=== PATIENT | male | born 1990 | race Caucasian/White ===

== ENCOUNTER 2016-09-12 18:34 | Inpatient (IN) ==
--- NOTE | 2016-09-12 19:01 | Emergency Department Note ---
Disposition Clinical Impression: Suicidal ideation, Cannabis abuse, Chronic schizophrenia Bipolar disorder Qualifiers: Active/Remission status: currently active Current bipolar episode type: mixed Current episode severity: unspecified Qualified Code(s): F31.60 - Bipolar disorder, current episode mixed, unspecified Disposition: Admitted As Inpatient Condition: Fair Time of Disposition: 21:04 Psych HPI - General Chief Complaint: ED Psychiatric Symptoms Stated Complaint: SI attempt Time Seen by Provider: 09/12/16 18:35 Source: patient Mode of arrival: ambulatory Limitations: no limitations Nursing Notes Reviewed: Yes Vital Signs Reviewed: Yes - History of Present Illness HPI Narrative: 26-year-old male with history of bipolar, schizophrenia, presents after an attempt of self-harm, tried CUTTING HIS his left wrist, he did cut his left wrist with razor blades, there is a superficial incisions to the distal aspect of his left wrist, bleeding controlled. Denies homicidal ideation, denies auditory or visual hallucinations. He is currently taking several psychiatric medications including fluphenazine, citalopram, he is not up-to-date on his tetanus shot. Pt complaint: suicidal ideation, feels depressed History of similar episodes: Yes Improves with: medication Worsens with: none Context: recent drug abuse, not taking psychiatric medications, significant life stressor Alleged intoxication: No Associated Psychiatric Symptoms: none Associated symptoms: Reports: denies other symptoms. Denies: confusion, headache, shortness of breath, nausea Traumatic symptoms: denies traumatic injury Treatments prior to arrival: none Self harm or harm to others: admits thoughts of self harm, has plan (Cutting) - Related Data Home Medications Medication Instructions Recorded Confirmed Citalopram [CeleXA] 40 mg PO DAILY 09/12/16 09/12/16 Previous Rx's Medication Instructions Recorded Fluphenazine [Prolixin] 10 mg PO HS #30 tablet 07/07/16 HydrOXYzine Pamoate 25 mg PO TID PRN #90 capsule 07/07/16 Trazodone HCl 100 mg PO HS #30 tablet 07/07/16 Allergies Allergy/AdvReac Type Severity Reaction Status Date / Time No Known Allergies Allergy Verified 07/21/16 22:01 Review of Systems: A 14 point ROS was obtained and was negative except as per below or as documented in the HPI. Constitutional: Denies: fever, chills, weakness, weight change Eyes: Denies: eye pain, eye discharge, vision change ENT: Denies: ear pain, throat pain, hearing loss, epistaxis, congestion, Cardiovascular: Denies: chest pain, palpitations, dyspnea on exertion, edema, syncope Respiratory: Denies: cough, dyspnea, wheezes, hemoptysis, stridor Gastrointestinal: Denies: abdominal pain, nausea, vomiting. diarrhea, constipation, hematemesis, hematochezia Genitourinary: Denies: urgency, dysuria, frequency, hematuria Musculoskeletal: Denies: back pain, neck pain, arthralgia, myalgia Integumentary: Left wrist laceration Denies: rash, abrasion, lesions Neurological: Denies: headache, weakness, numbness, paresthesias, confusion, abnormal gait Psychiatric: Reports suicidal ideation, suicidal plan reports anxiety and depression Denies: HI Endocrine: Denies: fatigue Hematological/Lymphatic: Denies: easy bleeding, easy bruising Allergic/Immunologic: Denies: facial swelling, urticaria All systems ED: reviewed and negative except as stated. Past Medical History - Past Medical History Attestation: Yes The following information was validated with the patient. Medical history: Reports: arthritis, COPD, hypertension, other Psychiatric history: Reports: anxiety, bipolar, depression, PTSD, prior suicide attempt, previous psychiatric hospitalization - Social History Smoking Status: Current every day smoker Smokeless Tobacco Status: Yes Alcohol use: Reports: occasionally Drug use: Reports: opiates, marijuana, IVDU Physical Exam General: alert and oriented, in NAD, appears stated age, is pleasant and cooperative to exam Head: NCAT, no lesions Eyes: sclera anicteric, conjunctiva normal, PERRLA bilaterally, EOMI Bilaterally Ears: normal inspection, external ear wnl Nose: nasal septum nondeviated, sinuses nontender Throat: good dentition, mucous membranes moist Neck: no lymphadenopathy, trachea midline no deviation, no JVD Resp: CTA bilaterally, no resp distress, symmetric chest rise, no wheezes, rales , or rhonchi bilaterally CV: RRR, normal S1 and S2, no m/g/r, Pulses +2 Rad, +2 DP/PT Abdomen: Soft, NTND, no hepatosplenomegaly, no hernias, Negative Rovsing's sign , Negative Phillips's sign Back: normal inspection, no tenderness to palpation, Negative CVA tenderness bilaterally Neuro: A&O3, CN II-XII grossly intact bilaterally, no motor or sensory deficits bilaterally, gait normal, GCS 15 [id number] Ext: normal inspection, symmetric Active and Passive ROM UE and LE bilaterally , no pedal edema bilaterally Psych: +Suicidal Ideation Skin: Left wrist with several linear abrasions, no deep lacerations, - General Limitations: no limitations General appearance: alert, in no apparent distress Course Course Narrative: 26yom with suicidal ideation, update tetanus, clean and dress wound, psych workup pain medication and nicoderm patch. - Reevaluation(s) Reevaluation #1: Patient with violent outbursts, threatening staff, yelling loudly, he was pink slipped at this time workup negative and 1A called. Vital Signs Temperature 99.1 F 09/12/16 18:38 Pulse Rate 86 09/12/16 18:38 Respiratory Rate 18 09/12/16 18:38 Blood Pressure 112/67 09/12/16 18:38 O2 Sat by Pulse Oximetry 95 09/12/16 18:38 Temperature 98.9 F 09/12/16 21:26 Pulse Rate 86 09/12/16 18:38 Respiratory Rate 18 09/12/16 21:26 Blood Pressure 114/68 09/12/16 21:26 O2 Sat by Pulse Oximetry 95 09/12/16 18:38 Oxygen Delivery Oxygen Delivery Room Air Psych - Lab Data Result diagrams: 09/12/16 19:18 09/12/16 19:18 Lab Results 09/12/16 09/12/16 09/12/16 Range/Units 19:05 19:05 19:18 WBC 7.9 (4.3-11.1) K/mcL RBC 4.98 (4.19-5.50) M/mcL Hgb 16.2 (12.9-16.9) g/dL Hct 46.2 (37.5-50.1) % MCV 92.8 (83.0-100.0) fL MCH 32.5 (28.0-33.3) pg MCHC 35.1 (31.6-35.5) g/dL RDW 11.8 (11.5-14.5) % Plt Count 257 (140-400) K/mcL MPV 10.0 (9.4-12.4) fL Immature Gran % 0.4 (0-4) % Seg Neutrophils % 71.7 % Lymphocytes % 19.2 % Monocytes % 7.5 % Eosinophils % 0.6 % Basophils % 0.6 % Neutrophils # 5.7 (1.6-8.9) K/mcL Lymphocytes # 1.5 (0.6-4.6) K/mcL Monocytes # 0.6 (0.0-1.3) K/mcL Eosinophils # 0.1 (0.0-0.6) K/mcL Basophils # 0.1 (0.0-0.2) K/mcL Sodium (136-145) mEq/L Potassium (3.5-4.5) mEq/L Chloride (98-109) mEq/L Carbon Dioxide (19-29) mEq/L BUN (8-26) mg/dL Creatinine (0.72-1.25) mg/dL Est GFR ( Amer) (> 60) Est GFR (Non-Af Amer) (> 60) BUN/Creatinine Ratio (6-26) Glucose (70-99) mg/dL Calculated Osmolality (280-300) Calcium (8.6-10.8) mg/dL Urine Color Dark Yellow (Yellow) Urine Clarity Clear (Clear) Urine pH 5.5 (5.0-8.0) pH Units Ur Specific [place] 1.026 H (1.010-1.025) Urine Protein Negative (Neg-Trace) mg/dL Urine Glucose (UA) 100 H (Normal) mg/dL Urine Ketones Negative (Negative) mg/dL Urine Blood Negative (Negative) Urine Nitrite Negative (Negative) Urine Bilirubin Small H (Negative) Urine Urobilinogen Normal (Normal) mg/dL Ur Leukocyte Esterase Negative (Negative) Salicylates (15-30) mg/dL Urine Opiates Screen Negative (Tmrkji=282) ng/mL Acetaminophen (10-30) mcg/mL Ur Barbiturates Screen Negative (Kqrgus=612) ng/mL Ur Phencyclidine Scrn Negative (Cutoff=25) ng/mL Ur Amphetamines Screen Negative (Qioiph=4622) ng/mL U Benzodiazepines Scrn Negative (Yksxql=529) ng/mL Urine Cocaine Screen Negative (Cutoff= 300) ng/mL U Marijuana (THC) Screen Positive H (Cutoff = 50) ng/mL Ethyl Alcohol (0-10) mg/dL 09/12/16 Range/Units 19:18 WBC (4.3-11.1) K/mcL RBC (4.19-5.50) M/mcL Hgb (12.9-16.9) g/dL Hct (37.5-50.1) % MCV (83.0-100.0) fL MCH (28.0-33.3) pg MCHC (31.6-35.5) g/dL RDW (11.5-14.5) % Plt Count (140-400) K/mcL MPV (9.4-12.4) fL Immature Gran % (0-4) % Seg Neutrophils % % Lymphocytes % % Monocytes % % Eosinophils % % Basophils % % Neutrophils # (1.6-8.9) K/mcL Lymphocytes # (0.6-4.6) K/mcL Monocytes # (0.0-1.3) K/mcL Eosinophils # (0.0-0.6) K/mcL Basophils # (0.0-0.2) K/mcL Sodium 139 (136-145) mEq/L Potassium 3.7 (3.5-4.5) mEq/L Chloride 107 (98-109) mEq/L Carbon Dioxide 21 (19-29) mEq/L BUN 15 (8-26) mg/dL Creatinine 0.76 (0.72-1.25) mg/dL Est GFR ( Amer) > 60 (> 60) Est GFR (Non-Af Amer) > 60 (> 60) BUN/Creatinine Ratio 20 (6-26) Glucose 111 H (70-99) mg/dL Calculated Osmolality 290 (280-300) Calcium 9.5 (8.6-10.8) mg/dL Urine Color (Yellow) Urine Clarity (Clear) Urine pH (5.0-8.0) pH Units Ur Specific [place] (1.010-1.025) Urine Protein (Neg-Trace) mg/dL Urine Glucose (UA) (Normal) mg/dL Urine Ketones (Negative) mg/dL Urine Blood (Negative) Urine Nitrite (Negative) Urine Bilirubin (Negative) Urine Urobilinogen (Normal) mg/dL Ur Leukocyte Esterase (Negative) Salicylates < 5.0 L (15-30) mg/dL Urine Opiates Screen (Tdbcpi=403) ng/mL Acetaminophen < 1.0 L (10-30) mcg/mL Ur Barbiturates Screen (Javdna=804) ng/mL Ur Phencyclidine Scrn (Cutoff=25) ng/mL Ur Amphetamines Screen (Njjjde=1163) ng/mL U Benzodiazepines Scrn (Wpimhb=466) ng/mL Urine Cocaine Screen (Cutoff= 300) ng/mL U Marijuana (THC) Screen (Cutoff = 50) ng/mL Ethyl Alcohol < 10 (0-10) mg/dL Psychiatric Medical Clearance - Medical Clearance Checklist Does the patient have a NEW psychiatric condition?: No Any abnormalities indicating possible medical illness?: No Any history of medical issues?: No Medical History: No Social History Section defined Any abnormal vital signs prior to transfer?: No Current Vitals: Last Vital Signs Temp 98.9 F 09/12/16 21:26 Pulse 86 09/12/16 18:38 Resp 18 09/12/16 21:26 BP 114/68 09/12/16 21:26 Pulse Ox 95 09/12/16 18:38 Is the patient intoxicated or cognitively impaired?: No Psychiatric Lab Panel: Drug Levels and Toxicity 09/12/16 09/12/16 19:05 19:18 Urine Opiates Screen Negative Acetaminophen < 1.0 L Ur Barbiturates Screen Negative Ur Phencyclidine Scrn Negative Ur Amphetamines Screen Negative U Benzodiazepines Scrn Negative Urine Cocaine Screen Negative U Marijuana (THC) Screen Positive H Ethyl Alcohol < 10 Any abnormalities on the physical exam?: No Any abnormal labs?: Yes (THC positive) Abnormal Labs: Abnormal lab results Glucose 111 mg/dL (70-99) H 09/12/16 19:18 Ur Specific [place] 1.026 (1.010-1.025) H 09/12/16 19:05 Urine Glucose (UA) 100 mg/dL (Normal) H 09/12/16 19:05 Urine Bilirubin Small (Negative) H 09/12/16 19:05 Salicylates < 5.0 mg/dL (15-30) L 09/12/16 19:18 Acetaminophen < 1.0 mcg/mL (10-30) L 09/12/16 19:18 U Marijuana (THC) Screen Positive ng/mL (Cutoff = 50) H 09/12/16 19:05 Does the patient require durable medical equiptment?: No Is the patient ambulatory?: Yes Is the patient a fall risk?: No Has the patient been medically cleared?: Yes Attestation Statement - Attestation Attestation: I examined this patient and my medical decision-making was reviewed with the LINE REPAIRER/PA/Advanced Practice Nurse/Resident Physician. I agree with the documented findings, disposition and treatment plan as described except to the extent set forth below. 26-year-old male brought in by parents because of depression, agitation and suicidal thoughts. He has had increasing agitation and attempted to cut himself today with a razor blade. He took a razor blade and inflicted several superficial wounds to his left wrist. Denies any toxic ingestions. He has a history of bipolar and affective disorder with previous suicide attempts. No recent medical complaints. Agitated male in no apparent physiologic distress. He is very agitated and uncooperative initially. Oropharynx is clear mucous membranes moist. Very poor dentition. Neck is supple. Pupils equal and reactive to light. Chest clear to auscultation bilateral. Exam regular. Abdomen soft non-distended, non-tender. Extremities a superficial linear abrasions on his left volar wrist. Brisk radial pulse. Brisk capillary refill. Normal sensation to the entire hand. He is medically cleared and ultimately admitted to psychiatric service.
[2016-09-12 19:18] LABS: Bilirubin,Urine Small (Negative); Blood,Urine Negative (Negative); Clarity,Urine Clear (Clear); Color,Urine Dark Yellow (Yellow); Glucose,Urine (UA) 100 mg/dL (Normal); Ketones,Urine Negative (Negative); Leukocyte Esterase,Urine Negative (Negative); Nitrite,Urine Negative (Negative); PH,Urine 5.5 pH Units (5.0-8.0); Protein,Urine Negative (Neg-Trace); Specific Gravity,Urine 1.026 (1.010-1.025); Urobilinogen,Urine Normal (Normal)
[2016-09-12 19:23] LABS: Amphetamine Screen,Urine Negative ng/mL (Cutoff=1000); Barbiturate Screen,Urine Negative ng/mL (Cutoff=200); Benzodiazepines Screen,Urine Negative ng/mL (Cutoff=200); Cannabinoid Screen,Urine Positive ng/mL (Cutoff = 50); Cocaine Screen,Urine Negative ng/mL (Cutoff= 300); Opiate Screen,Urine Negative ng/mL (Cutoff=300); Phencyclidine Screen,Urine Negative ng/mL (Cutoff=25)
[2016-09-12 19:23] LABS: Basophils # 0.1 K/mcL (0.0-0.2); Basophils % 0.6 %; Eosinophils # 0.1 K/mcL (0.0-0.6); Eosinophils % 0.6 %; Hematocrit 46.2 % (37.5-50.1); Hemoglobin 16.2 g/dL (12.9-16.9); Immature Granulocytes % 0.4 % (0-4); Lymphocytes # 1.5 K/mcL (0.6-4.6); Lymphocytes % 19.2 %; Mean Corpuscular HGB Conc 35.1 g/dL (31.6-35.5); Mean Corpuscular Hemoglobin 32.5 pg (28.0-33.3); Mean Corpuscular Volume 92.8 fL (83.0-100.0); Monocytes # 0.6 K/mcL (0.0-1.3); Monocytes % 7.5 %; Neutrophils # 5.7 K/mcL (1.6-8.9); Platelet Count 257 K/mcL (140-400); Red Blood Count 4.98 M/mcL (4.19-5.50); Red Cell Distribution Width 11.8 % (11.5-14.5); Segmented Neutrophils % 71.7 %
[2016-09-12 19:37] LABS: BUN/Creatinine Ratio 20 (6-26); Blood Urea Nitrogen 15 mg/dL (8-26); Calcium 9.5 mg/dL (8.6-10.8); Carbon Dioxide 21 mEq/L (19-29); Chloride 107 mEq/L (98-109); Glucose 111 mg/dL (70-99); Osmolality,Calculated 290 (280-300); Potassium 3.7 mEq/L (3.5-4.5); Sodium 139 mEq/L (136-145); eGFR For African Americans > 60 (> 60); eGFR For Non-African Americans > 60 (> 60)
[2016-09-12 19:38] LABS: Acetaminophen < 1.0 mcg/mL (10-30); Ethanol < 10 mg/dL (0-10); Salicylate < 5.0 mg/dL (15-30)
[2016-09-12] MEDS: Nicotine 21 MG PATCH.TD24 TD SCH (19:58)
[2016-09-12] MEDS ORDERED: Tdap (Boostrix) Vaccine 0.5 ML SYRINGE IM ONE (20:55)
[2016-09-12] MEDS ORDERED: *HR* LORazepam 1 MG TABLET PO ONE (21:11)
[2016-09-12] MEDS ORDERED: *HR* LORazepam 1 MG TABLET PO PRN (22:49)
[2016-09-12] MEDS ORDERED: *HR* LORazepam 2 MG/ML VIAL IM PRN (22:49)
[2016-09-12] MEDS ORDERED: Haloperidol Lactate 5 MG/ML VIAL IM PRN (22:49)
[2016-09-12] MEDS ORDERED: Acetaminophen 325 MG TABLET PO PRN (22:49)
[2016-09-12] MEDS ORDERED: hydrOXYzine pamoate 25 MG CAPSULE PO PRN (22:49)
[2016-09-12] MEDS ORDERED: MOM Conc 10 ML UD.LIQ PO PRN (22:49)
[2016-09-12] MEDS ORDERED: Mag Hydrox/Al Hydrox/Simeth 30 ML UDC PO PRN (22:49)
[2016-09-12] MEDS: traZODone 50 MG TABLET PO SCH (23:12)
[2016-09-13] MEDS: Nicotine 21 MG PATCH.TD24 TD SCH (08:43)
--- NOTE | 2016-09-13 09:58 | Psychiatry History & Physical ---
Date of Encounter: 09/16/16 Time of Encounter: 09:51 History of Present Illness Patient Stated Chief Complaint: suicidal Medicare Admission Attestation: For traditional Medicare patients the provided hospital inpatient services are reasonable and necessary and in the case of services not specified as inpatient -only under 42 CFR 419.22 (n), that they are appropriately provided as inpatient services in accordance 42 CFR 412.3. For Critical Access Hospital the patient may reasonably be expected to be discharged or transferred to a hospital within 96 hours after admission to the Critical Access Hospital. Admitted From: Emergency Dept History of Present Illness: Mr. Mosley is a 26 year old male admitted from the emergency department where he presented with his parents are concerned that he was noncompliant with his medication is agitated. Sleeping he was feeling depressed and suicidal he cut his left wrist with a razor several cuts that were handled in the ER in the emergency room his tox screen was positive for THC. He has a history of bipolar disorder and schizophrenia also has a substance abuse including marijuana and cocaine he smoked cigarettes and consumes a large amount of caffeine. He also is dealing with legal issues and upcoming court hearing. Past Med Surg Social Fam HX - Past Medical History Medical history: arthritis, COPD, hypertension, other - Past Psychiatric History Psychiatric history: Reports: bipolar, schizophrenia, previous psychiatric hospitalization Family psychiatric history: Unknown Family History of Suicide: Unknown - Social History Smoking Status: Current every day smoker Smokeless Tobacco Status: Yes Alcohol use: occasionally Drug use: opiates, marijuana, IVDU - Family History Father Hx Family Neurologic Disorders: Yes (Bipolar) Medications & Allergies Fluphenazine [Prolixin] 10 mg PO HS #30 tablet 07/07/16 [Rx] HydrOXYzine Pamoate 25 mg PO TID PRN #90 capsule 07/07/16 [Rx] Trazodone HCl 100 mg PO HS #30 tablet 07/07/16 [Rx] Citalopram [CeleXA] 40 mg PO DAILY 09/12/16 [History] Allergies No Known Allergies Allergy (Verified 07/21/16 22:01) Review of Systems Psychiatric: Reports: depression, anxiety, suicidal ideation, auditory hallucinations, hopelessness, irritability Mental Status Exam Patient orientation: Yes Person, Yes Time, Yes Place Level of alertness: Alert Patient appearance: Unkempt, Disheveled Behavior: nervous, anxious, agitated, hostile, restless Psychomotor activity: Agitated Eye contact: Minimal Contact Mood description: Anxious, Labile, Irritable Affect description: labile, dysphoric, anxious Speech pattern: Normal rate, Normal rhythm, Normal tone, Impoverished Speech volume: Normal Thought process: Circumstantial, Disorganized Thought content: Yes Suicidal ideation, Yes Poverty of Content Perceptual disturbances: No Auditory hallucinations, No Visual hallucinations Attention span: Unable to Sustain Attention Memory description: Recent Impaired, Remote Intact Patient reliability: Questionable Historian Intelligence estimate: Average Judgment: Fair Insight: Minimal Results - Vital Signs Vital signs: Temp Pulse Resp BP Pulse Ox 98.2 F 86 16 105/71 95 09/13/16 08:23 09/13/16 08:23 09/13/16 08:23 09/13/16 08:23 09/12/16 18:38 - Labs Labs: Laboratory Last Values WBC 7.9 K/mcL (4.3-11.1) 09/12/16 19:18 RBC 4.98 M/mcL (4.19-5.50) 09/12/16 19:18 Hgb 16.2 g/dL (12.9-16.9) 09/12/16 19:18 Hct 46.2 % (37.5-50.1) 09/12/16 19:18 MCV 92.8 fL (83.0-100.0) 09/12/16 19:18 MCH 32.5 pg (28.0-33.3) 09/12/16 19:18 MCHC 35.1 g/dL (31.6-35.5) 09/12/16 19:18 RDW 11.8 % (11.5-14.5) 09/12/16 19:18 Plt Count 257 K/mcL (140-400) 09/12/16 19:18 MPV 10.0 fL (9.4-12.4) 09/12/16 19:18 Immature Gran % 0.4 % (0-4) 09/12/16 19:18 Seg Neutrophils % 71.7 % 09/12/16 19:18 Lymphocytes % 19.2 % 09/12/16 19:18 Monocytes % 7.5 % 09/12/16 19:18 Eosinophils % 0.6 % 09/12/16 19:18 Basophils % 0.6 % 09/12/16 19:18 Neutrophils # 5.7 K/mcL (1.6-8.9) 09/12/16 19:18 Lymphocytes # 1.5 K/mcL (0.6-4.6) 09/12/16 19:18 Monocytes # 0.6 K/mcL (0.0-1.3) 09/12/16 19:18 Eosinophils # 0.1 K/mcL (0.0-0.6) 09/12/16 19:18 Basophils # 0.1 K/mcL (0.0-0.2) 09/12/16 19:18 Sodium 139 mEq/L (136-145) 09/12/16 19:18 Potassium 3.7 mEq/L (3.5-4.5) 09/12/16 19:18 Chloride 107 mEq/L (98-109) 09/12/16 19:18 Carbon Dioxide 21 mEq/L (19-29) 09/12/16 19:18 BUN 15 mg/dL (8-26) 09/12/16 19:18 Creatinine 0.76 mg/dL (0.72-1.25) 09/12/16 19:18 Est GFR ( Amer) > 60 (> 60) 09/12/16 19:18 Est GFR (Non-Af Amer) > 60 (> 60) 09/12/16 19:18 BUN/Creatinine Ratio 20 (6-26) 09/12/16 19:18 Glucose 111 mg/dL (70-99) H 09/12/16 19:18 Calculated Osmolality 290 (280-300) 09/12/16 19:18 Calcium 9.5 mg/dL (8.6-10.8) 09/12/16 19:18 Urine Color Dark Yellow (Yellow) 09/12/16 19:05 Urine Clarity Clear (Clear) 09/12/16 19:05 Urine pH 5.5 pH Units (5.0-8.0) 09/12/16 19:05 Ur Specific [place] 1.026 (1.010-1.025) H 09/12/16 19:05 Urine Protein Negative mg/dL (Neg-Trace) 09/12/16 19:05 Urine Glucose (UA) 100 mg/dL (Normal) H 09/12/16 19:05 Urine Ketones Negative mg/dL (Negative) 09/12/16 19:05 Urine Blood Negative (Negative) 09/12/16 19:05 Urine Nitrite Negative (Negative) 09/12/16 19:05 Urine Bilirubin Small (Negative) H 09/12/16 19:05 Urine Urobilinogen Normal mg/dL (Normal) 09/12/16 19:05 Ur Leukocyte Esterase Negative (Negative) 09/12/16 19:05 Salicylates < 5.0 mg/dL (15-30) L 09/12/16 19:18 Urine Opiates Screen Negative ng/mL (Yqnwqb=913) 09/12/16 19:05 Acetaminophen < 1.0 mcg/mL (10-30) L 09/12/16 19:18 Ur Barbiturates Screen Negative ng/mL (Vwsfca=769) 09/12/16 19:05 Ur Phencyclidine Scrn Negative ng/mL (Cutoff=25) 09/12/16 19:05 Ur Amphetamines Screen Negative ng/mL (Bzects=2075) 09/12/16 19:05 U Benzodiazepines Scrn Negative ng/mL (Dxqido=908) 09/12/16 19:05 Urine Cocaine Screen Negative ng/mL (Cutoff= 300) 09/12/16 19:05 U Marijuana (THC) Screen Positive ng/mL (Cutoff = 50) H 09/12/16 19:05 Ethyl Alcohol < 10 mg/dL (0-10) 09/12/16 19:18 Assessment and Plan (1) Bipolar disorder Status: Acute Plan: Admit inpatient for safety and stabilization, Close observation, Suicide Precautions per unit protocol, Encourage participation in unit milieu, Group Therapy, Monitor sleep, Monitor appetite Additional Plan: Will restart patient on his home medication monitoring his response in addition to when necessary medication for insomnia and anxiety. Estimated length of stay approximately 3 days. Risks, benefits, side effects, alternatives discussed w/pt: Yes Patient agreeable to treatment: Yes Estimated Length of Stay (Days): 3 Qualifiers: Active/Remission status: currently active Current bipolar episode type: mixed Current episode severity: unspecified Qualified Code(s): F31.60 - Bipolar disorder, current episode mixed, unspecified
[2016-09-13] MEDS: traZODone 50 MG TABLET PO SCH (20:27)
[2016-09-14 08:39] VITALS: BP 93/67
[2016-09-14] MEDS: Nicotine 21 MG PATCH.TD24 TD SCH (08:39)
--- NOTE | 2016-09-14 12:22 | Discharge Summary ---
Date of Encounter: 09/14/16 Time of Encounter: 12:09 Diagnosis - Discharge Diagnosis (1) Bipolar disorder Priority: Primary Status: Acute Qualifiers: Active/Remission status: currently active Current bipolar episode type: mixed Current episode severity: unspecified Qualified Code(s): F31.60 - Bipolar disorder, current episode mixed, unspecified (2) Suicidal ideation Priority: Secondary Status: Acute Medications - Discharge Medications Fluphenazine [Prolixin] 10 mg PO HS #30 tablet 07/07/16 [Rx] HydrOXYzine Pamoate 25 mg PO TID PRN #90 capsule 07/07/16 [Rx] Trazodone HCl 100 mg PO HS #30 tablet 07/07/16 [Rx] Citalopram [CeleXA] 40 mg PO DAILY 09/12/16 [History] Allergies No Known Allergies Allergy (Verified 07/21/16 22:01) Provider Date of admission: 09/12/16 21:16 Primary care physician: PCP NO Discharging clinician: Boogie Stern Assessment and Plan - Patient/Caregiver Discharge Instructions Activity: resume usual activities as tolerated Diet: regular diet - Follow up Plan Follow up with: [facility] [Outside] - 09/16/16 8:00 am (The above appointment is with Dr. Cuenca. Your counselor, Marianela, is out of the office until 2016. You must contact her on 09/17/2016 to set up a new appointment.) Disposition: Home, Self-Care Hospital Course Hospital course: Mr. Mosley is a 26 year old male admitted from the emergency room for depression and suicidal ideation and agitation and was positive for THC also last cut his left wrist was a razor in a suicide attempt. For details of the admission history please see H&P. On admission patient was restarted on his home medication: Prolixin citalopram and trazodone he was compliant with his medication he had 2 previous episodes of agitation or he was loud and threatening patient's but he was redirectable prior to discharge she was cooperative compliant with medication and denied any suicidal or homicidal ideation he was medically stable. - Time Spent with Patient Total time spent providing and/or coordinating discharge services: Less than 30 minutes Quality - Multiple Antipsychotics Patient discharged on 2 or more antipsychotic medications: No Procedures - Procedures Procedures: Medication Management, Crisis Stabilization, Supportive Therapy, Group Therapy, Psychoeducational Therapy Mental Status Exam - Mental Status Exam Patient orientation: Yes Person, Yes Time, Yes Place Level of alertness: Alert Patient appearance: Unkempt, Disheveled Behavior: calm, cooperative, anxious, hostile, restless Psychomotor activity: Increased Eye contact: Maintains Eye Contact Mood description: Euthymic/stable, Anxious Affect description: congruent with mood, dysphoric, anxious Speech pattern: Normal rate, Normal rhythm, Normal tone, Clear Speech Volume: Normal Thought process: Intact, Logical, Linear Thought Content: Yes Intact, No Suicidal ideation, No Homicidal ideation, No Overt delusions, Yes Poverty of Content Perceptual Disturbances: No Auditory hallucinations, No Visual hallucinations Judgment: Good Insight: Partial
== END 2016-09-14 14:20 | disposition home or self-care (01) | DRG 753 ==
LOC: EMEROO 18:34 → 1ANU 21:16
PROVIDERS: ADMIT Psychiatry & Neurology Psychiatry; ATTEND Psychiatry & Neurology Psychiatry